=== PATIENT | female | born 1990 | race Hispanic/Latino ===

== ENCOUNTER 2021-10-31 10:53 | Emergency (ER) | payer MEDICAID, OTHER ==
[~2021-10-31] VITALS: Ht 154.9 cm; Wt 77.1 kg
[2021-10-31 10:58] VITALS: BP 137/76
[2021-10-31] MEDS ORDERED: PREDNISONE 20 MG TABLET PO ONE (11:30)
[2021-10-31] MEDS ORDERED: FAMOTIDINE 20MG TAB PO ONE (11:30)
[2021-10-31] MEDS ORDERED: GABAPENTIN 300 MG CAPSULE PO SCH (11:30)
[2021-10-31] MEDS ORDERED: PRED20TA3 PO (11:38)
[2021-10-31] MEDS ORDERED: FAMC500T8 PO (11:38)
[2021-10-31] MEDS ORDERED: GABA300C PO (11:38)
[2021-10-31] MEDS ORDERED: FAMO-136 PO (11:38)
[2021-10-31] MEDS ORDERED: ACET-2079 PO (11:38)
== END 2021-10-31 12:20 | disposition home or self-care (01) ==
LOC: EDH 10:53
DX: B02.9 Zoster without complications (principal); R21 Rash and other nonspecific skin eruption